=== PATIENT | male | born 1990 | race Caucasian/White ===

== ENCOUNTER 2018-10-30 06:04 | Day surgery (SDC) | payer OTHER ==
[2018-10-30] MEDS ORDERED: CEFAZOLIN 1 GM INJ (07:00)
[2018-10-30] MEDS ORDERED: LIDOCAINE 100 MG SYRINGE (07:09)
[2018-10-30] MEDS ORDERED: MIDAZOLAM 1 MG/ML 2 ML INJ (07:09)
[2018-10-30] MEDS ORDERED: PROPOFOL 20 ML (07:09)
[2018-10-30] MEDS ORDERED: FENTAnyl 50 MCG/ML VIAL ×2 (07:09→08:07)
[2018-10-30] MEDS ORDERED: GLYCOPYRROLATE 0.4 MG INJ (07:09)
[2018-10-30] MEDS ORDERED: ROCURONIUM 50 MG INJ (07:09)
[2018-10-30] MEDS ORDERED: ONDANSETRON 4 MG INJ (07:10)
[2018-10-30] MEDS ORDERED: SUGAMMADEX SODIUM 200 MG/2 ML VIAL IV (07:10)
[2018-10-30] MEDS ORDERED: DEXAMETHASONE 4 MG/ML 5 ML INJ (07:10)
[2018-10-30] MEDS ORDERED: PROVENTIL HFA 6.7GM INHALER (07:29)
[2018-10-30] MEDS ORDERED: EPINEPHrine 0.1 MG/ML SYG (07:30)
[2018-10-30] MEDS ORDERED: THROMBIN (BOVINE) 5,000 UNIT VIAL TP (07:30)
[2018-10-30] MEDS ORDERED: LABETALOL HCL 20MG INJ IV (08:00)
[2018-10-30] MEDS ORDERED: FENTAnyl 50 MCG/ML VIAL IV (08:00)
[2018-10-30] MEDS ORDERED: hydrALAzine 20 MG INJ IV (08:00)
[2018-10-30] MEDS ORDERED: HYDROmorphONE 1 MG/5 ML IV SYRINGE IV (08:00)
[2018-10-30] MEDS ORDERED: METOCLOPRAMIDE 10 MG INJ IV (08:00)
[2018-10-30] MEDS ORDERED: MEPERIDINE 25 MG INJ IV (08:00)
[2018-10-30] MEDS: OXYMETAZOLINE 0.05% 15 ML NAS SPRAY NASAL (08:09)
[2018-10-30] MEDS: LIDOCAINE 1%/EPI (1:100,000) (MDV) 20 ML (08:10)
[2018-10-30] MEDS ORDERED: HYDROmorphONE 2 MG/ML SYG (08:40)
[2018-10-30] MEDS ORDERED: LABETALOL HCL 20MG INJ (09:04)
[2018-10-30] MEDS: ONDANSETRON 4 MG INJ IV (13:05)
[2018-10-30] MEDS: HYDROmorphONE 1 MG/5 ML IV SYRINGE IV (13:06)
[2018-10-30] MEDS: FENTAnyl 50 MCG/ML VIAL IV (13:24)
[2018-10-30] MEDS ORDERED: HYDROCODONE/APAP (5/325) TAB PO (15:00)
== END 2018-10-30 16:14 | disposition home or self-care (01) ==
LOC: SDS 06:04
DX: J32.1 Chronic frontal sinusitis (principal); J32.2 Chronic ethmoidal sinusitis; J32.0 Chronic maxillary sinusitis; J32.3 Chronic sphenoidal sinusitis; J34.2 Deviated nasal septum; J34.3 Hypertrophy of nasal turbinates
CPT/HCPCS: 30140; 88300; 88304